=== PATIENT | female | born 1995 ===

== ENCOUNTER 2019-04-23 19:30 | Outpatient (CLI) | payer OTHER | END 2019-04-23 19:31 | disposition home or self-care (01) | LOC: SLEEPLAB 19:30 | PROVIDERS: ATTEND Internal Medicine Critical Care Medicine | DX: G47.33 Obstructive sleep apnea (adult) (pediatric) (principal); G47.61 Periodic limb movement disorder; R53.83 Other fatigue; R06.83 Snoring; R51 Headache; F41.9 Anxiety disorder, unspecified; F32.9 Major depressive disorder, single episode, unspecified; G47.00 Insomnia, unspecified; G47.63 Sleep related bruxism; G47.52 REM sleep behavior disorder | CPT/HCPCS: 95810 ==